=== PATIENT | female | born 1950 | race Caucasian/White ===

== ENCOUNTER 2019-01-02 17:35 | Inpatient (IN) | payer MEDICARE, OTHER ==
[~2019-01-02] VITALS: Ht 152.4 cm; Wt 83.9 kg
[2019-01-02 23:00] VITALS: BP 148/69
[2019-01-02] MEDS ORDERED: MAGNESIUM HYDROXIDE 30 ML UDC PO PRN (23:30)
[2019-01-02] MEDS ORDERED: LORAZEPAM 0.5 MG TABLET PO PRN (23:30)
[2019-01-02] MEDS ORDERED: ACETAMINOPHEN 325 MG TABLET PO PRN (23:30)
[2019-01-02] MEDS ORDERED: MAG HYDROX/AL HYDROX/SIMETH 30 ML UDC PO PRN (23:30)
[2019-01-03 07:52] LABS: ALBUMIN 3.1 g/dL (3.4-5.0); BILIRUBIN,TOTAL 0.7 mg/dL (0.2-1.0); CALCIUM, SERUM 8.5 mg/dL (8.5-10.1); CREATININE 0.7 mg/dL (0.6-1.3); POTASSIUM 3.8 mmol/L (3.5-5.1); TOTAL PROTEIN, SERUM 6.8 g/dL (6.4-8.2)
[2019-01-03 07:57] LABS: CHOLESTEROL 89 mg/dL (<200); HDL CHOLESTEROL 41 mg/dL (40-60); LDL 47 mg/dL (0-99); TRIGLYCERIDES 91 mg/dL (30-150)
[2019-01-03 08:00] VITALS: BP 147/78
[2019-01-03] MEDS ORDERED: ARIP20TA4 PO (08:23)
[2019-01-03] MEDS ORDERED: [UNRECOGNIZED DRUG - REMARK] (08:29)
[2019-01-03] MEDS: Z GUARD REMEDY 2 OZ OINT TP SCH (13:30)
[2019-01-03] MEDS ORDERED: Z GUARD REMEDY 2 OZ OINT TP PRN (13:30)
[2019-01-03] MEDS: ARIPIPRAZOLE 5 MG TABLET PO SCH ×2 (15:53→21:11)
[2019-01-03 16:00] VITALS: BP 162/68
[2019-01-03 20:17] VITALS: BP 131/77
[2019-01-04 08:00] VITALS: BP 152/63
[2019-01-04] MEDS: Z GUARD REMEDY 2 OZ OINT TP SCH (09:09)
[2019-01-04] MEDS: ARIPIPRAZOLE 5 MG TABLET PO SCH ×2 (09:09→20:45)
[2019-01-04 16:00] VITALS: BP 158/96
[2019-01-04 20:38] VITALS: BP 148/95
[2019-01-05 08:00] VITALS: BP 129/66
[2019-01-05] MEDS: ARIPIPRAZOLE 5 MG TABLET PO SCH ×2 (08:04→20:54)
[2019-01-05] MEDS: Z GUARD REMEDY 2 OZ OINT TP SCH (08:05)
[2019-01-05 16:00] VITALS: BP 138/65
[2019-01-05 20:33] VITALS: BP 134/88
[2019-01-05] MEDS: TEMAZEPAM 7.5 MG CAPSULE PO PRN (22:03)
[2019-01-06 08:00] VITALS: BP 120/75
[2019-01-06] MEDS: Z GUARD REMEDY 2 OZ OINT TP SCH (09:00)
[2019-01-06] MEDS: ARIPIPRAZOLE 5 MG TABLET PO SCH ×2 (10:27→21:39)
[2019-01-06 16:05] VITALS: BP 131/98
[2019-01-06 20:00] VITALS: BP 124/50
[2019-01-06] MEDS ORDERED: ARIPIPRAZOLE 5 MG TABLET PO SCH (22:00)
[2019-01-07 08:00] VITALS: BP 160/72
[2019-01-07] MEDS: ARIPIPRAZOLE 5 MG TABLET PO SCH ×2 (08:37→20:39)
[2019-01-07] MEDS: Z GUARD REMEDY 2 OZ OINT TP SCH (08:40)
[2019-01-07 16:00] VITALS: BP 125/71
[2019-01-07 20:00] VITALS: BP 129/71
[2019-01-07] MEDS: TEMAZEPAM 7.5 MG CAPSULE PO PRN (21:24)
[2019-01-08 07:36] LABS: BASOPHILS % (AUTO) 0.4 % (0.0-2.0); EOSINOPHILS % (AUTO) 2.5 % (0.0-6.0); HEMATOCRIT 44 % (33-45); LYMPHOCYTES # (AUTO) 2.9 /CMM (0.8-4.8); LYMPHOCYTES % (AUTO) 44.1 % (20.0-44.0); MEAN CORPUSCULAR HGB CONC 34 g/dl (31.0-36.0); MEAN CORPUSCULAR VOLUME 91 fL (82-100); MONOCYTES # (AUTO) 0.5 /CMM (0.1-1.30); PLATELET COUNT (AUTO) 269 /CMM (150-450); RED BLOOD CELL COUNT(AUTO) 4.85 MIL/uL (4.0-5.2); WHITE BLOOD COUNT (AUTO) 6.5 K/uL (4.3-11.0)
[2019-01-08 07:42] LABS: CALCIUM, SERUM 9.5 mg/dL (8.5-10.1); CREATININE 0.6 mg/dL (0.6-1.3); POTASSIUM 4.2 mmol/L (3.5-5.1)
[2019-01-08 08:00] VITALS: BP 113/78
[2019-01-08] MEDS: ARIPIPRAZOLE 5 MG TABLET PO SCH ×2 (08:23→21:20)
[2019-01-08] MEDS: Z GUARD REMEDY 2 OZ OINT TP SCH (08:53)
[2019-01-08 16:00] VITALS: BP 146/90
[2019-01-08 20:00] VITALS: BP 143/59
[2019-01-09 08:00] VITALS: BP 140/86
[2019-01-09] MEDS: ARIPIPRAZOLE 5 MG TABLET PO SCH ×2 (08:50→21:12)
[2019-01-09] MEDS: Z GUARD REMEDY 2 OZ OINT TP SCH (09:54)
[2019-01-09 16:00] VITALS: BP 154/76
[2019-01-09 20:22] VITALS: BP 128/65
[2019-01-10 08:00] VITALS: BP 128/67
[2019-01-10] MEDS: ARIPIPRAZOLE 5 MG TABLET PO SCH ×2 (09:08→21:48)
[2019-01-10] MEDS: Z GUARD REMEDY 2 OZ OINT TP SCH (11:59)
[2019-01-10 15:43] LABS: BILIRUBIN,URINE NEGATIVE (NEGATIVE); BLOOD, URINE NEGATIVE Ery/uL (NEGATIVE); COLOR,URINE YELLOW (YELLOW); KETONES,URINE NEGATIVE (NEGATIVE); LEUKOCYTE ESTERASE ,URINE 1+ (NEGATIVE); NITRITE, URINE NEGATIVE (NEGATIVE); PH,URINE 6.5 (5.0-8.0); PROTEIN,URINE NEGATIVE (NEGATIVE); UGLUCOSE NEGATIVE (NEGATIVE); UROBILINOGEN,URINE 0.2 EU/dL (0.2)
[2019-01-10 15:44] LABS: APPEARANCE,URINE HAZY (CLEAR)
[2019-01-10 16:00] VITALS: BP 147/74
[2019-01-10 16:00] LABS: BACTERIA,URINE Few /HPF (None Seen); RBC,URINE 0-2 /HPF (0-2); SQUAMOUS EPITHELIAL CELL,UR Few /HPF (None Seen)
[2019-01-10 20:00] VITALS: BP 158/90
[2019-01-10] MEDS: TEMAZEPAM 7.5 MG CAPSULE PO PRN (21:48)
[2019-01-11 08:00] VITALS: BP 142/80
[2019-01-11] MEDS: ARIPIPRAZOLE 5 MG TABLET PO SCH ×2 (08:08→21:46)
[2019-01-11] MEDS: Z GUARD REMEDY 2 OZ OINT TP SCH (08:10)
[2019-01-11 16:00] VITALS: BP 156/97
[2019-01-11 20:15] VITALS: BP 124/65
[2019-01-11] MEDS: TEMAZEPAM 7.5 MG CAPSULE PO PRN (21:47)
[2019-01-12 08:00] VITALS: BP 149/76
[2019-01-12] MEDS: ARIPIPRAZOLE 5 MG TABLET PO SCH (08:41)
[2019-01-12] MEDS: Z GUARD REMEDY 2 OZ OINT TP SCH (10:03)
== END 2019-01-12 13:10 | DRG 885 ==
LOC: GPS 22:47
PROVIDERS: ADMIT Psychiatry & Neurology Psychiatry; ATTEND Psychiatry & Neurology Psychiatry
DX: F20.0 Paranoid schizophrenia (principal); F41.9 Anxiety disorder, unspecified; F29 Unspecified psychosis not due to a substance or known physiological condition; Z73.6 Limitation of activities due to disability; Z91.14 Patient's other noncompliance with medication regimen; E66.01 Morbid (severe) obesity due to excess calories; F43.10 Post-traumatic stress disorder, unspecified; Z68.36 Body mass index [BMI] 36.0-36.9, adult; E88.09 Other disorders of plasma-protein metabolism, not elsewhere classified
CPT/HCPCS: 36415; 80048-TC; 80053-TC; 80061-TC; 81000-TC; 82962-TC; 85025-TC; 87081-TC; 87086-TC; 87186-TC